=== PATIENT | female | born 1960 | race Caucasian/White ===

== ENCOUNTER 2019-01-26 10:24 | Emergency (ER) | payer OTHER ==
[~2019-01-26] VITALS: Ht 157.5 cm; Wt 76.2 kg
[2019-01-26 11:01] VITALS: BP 155/61
--- NOTE | 2019-01-26 11:01 | NUR ---
BIB SELF. C/O ABDOMINAL PAIN TO RUQ THAT RADIATES TO RIGHT LOWER BACK X 4 DAYS. PT STATES 6/10 PAIN. NORMOACTIVE TO ALL ABDOMINAL QUADRANTS. NO N/V/D. BM TODAY IN THE AM. PT STATES SHE WENT TO HER PRIMARY DOCTOR ON WEDNESDAY AND WAS PRESCRIBED OMEPRAZOLE 20 MG. HOB UP. BED SIDE RAILS UP X 1. ON LOW BED POSITION. LOCKED. MADE AWARE OF PT STATUS.
--- NOTE | 2019-01-26 11:45 | NUR ---
DR HEALY AT BEDSIDE FOR PT EVALUATION
[2019-01-26 12:12] LABS: BASOPHILS % (AUTO) 0.5 % (0.0-2.0); EOSINOPHILS # (AUTO) 0.1 K/uL (0-0.4); EOSINOPHILS % (AUTO) 2.2 % (0.0-4.0); HEMATOCRIT 37.3 % (36-48); HEMOGLOBIN 12.6 g/dL (12.0-16.0); LYMPHOCYTES # (AUTO) 1.6 K/uL (2.5-16.5); LYMPHOCYTES % (AUTO) 39.5 % (20.5-51.1); MEAN CORPUSCULAR HEMOGLOBIN 30 pg (27-31); MEAN CORPUSCULAR HGB CONC 34 g/dL (33-37); MONOCYTES # (AUTO) 0.4 K/uL (0.8-1.0); NEUTROPHILS # (AUTO) 1.9 K/uL (1.8-7.7); NEUTROPHILS % (AUTO) 48.8 % (42.2-75.2); PLATELET COUNT (AUTO) 257 K/uL (140-450); RED BLOOD CELL COUNT(AUTO) 4.15 MIL/uL (4.20-5.40); RED CELL DISTRIBUTION WIDTH 13.2 % (11.6-13.7)
[2019-01-26 12:21] LABS: ANION GAP 14.5 (8-16); CARBON DIOXIDE 25.2 mmol/L (21-32); CREATININE 0.7 mg/dL (0.6-1.3); POTASSIUM 3.7 mmol/L (3.5-5.1)
[2019-01-26 12:27] LABS: ALBUMIN 3.6 g/dL (3.4-5.0); TOTAL BILIRUBIN 0.3 mg/dL (0.0-1.0)
[2019-01-26 12:28] LABS: APPEARANCE,URINE CLEAR (CLEAR); BILIRUBIN,URINE NEGATIVE (NEGATIVE); BLOOD, URINE NEGATIVE (NEGATIVE); COLOR,URINE YELLOW (YELLOW); LEUKOCYTE ESTERASE ,URINE TRACE (NEGATIVE); NITRITE, URINE NEGATIVE (NEGATIVE); PH,URINE 6.5 (5.0-9.0); UGLUCOSE NEGATIVE (NEGATIVE)
[2019-01-26 12:38] LABS: RBC,URINE 0 /HPF (0-5); WBC,URINE 0-5 /HPF (0-5)
--- NOTE | 2019-01-26 13:10 | NUR ---
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
[2019-01-26] MEDS ORDERED: oxyCODONE/APAP 5/325 MG 1 TAB TAB PO ONE (14:45)
--- NOTE | 2019-01-26 15:15 | NUR ---
Patient discharged with v/s stable. Written and verbal after care instructions given and explained. Patient alert, oriented and verbalized understanding of instructions. Carried with steady gait. All questions addressed prior to discharge. ID band removed. Patient advised to follow up with PMD. Rx of ZOFRAN,MIRALAX,NORCO given. Patient educated on indication of medication including possible reaction and side effects. Opportunity to ask questions provided and answered.
[2019-01-26 15:20] VITALS: BP 131/64
== END 2019-01-26 15:15 | disposition home or self-care (01) ==
LOC: MED 10:24
DX: K80.80 Other cholelithiasis without obstruction (principal)
CPT/HCPCS: 36415; 76705; 80053; 81001; 83690; 85025; 99284; Q0092